=== PATIENT | female | born 1940 | race Caucasian/White ===

== ENCOUNTER → 2023-06-28 | Emergency (ER) | payer MEDICARE, BC ==
[~2023-06-28] VITALS: Ht 170.2 cm; Wt 62.6 kg
[~2023-06-28] MED LIST: DIATR MEGLU/DIATRIZOATE SODIUM 30 ML BOTTLE (GASTROGRAPHIN) ONE
[2023-06-28 23:24] VITALS: BP 139/68; TEMP 97.8; O2SAT 95
== END | disposition home or self-care (01) ==
LOC: ER 21:54
DX: K94.23 Gastrostomy malfunction (principal); I10 Essential (primary) hypertension; F29 Unspecified psychosis not due to a substance or known physiological condition; F39 Unspecified mood [affective] disorder
CPT/HCPCS: 99284; 43762; 74018; Q9963

== ENCOUNTER 2023-07-14 11:15 | Emergency (ER) | payer MEDICARE, BC ==
[~2023-07-14] VITALS: Ht 165.1 cm; Wt 66.7 kg
[2023-07-14] MEDS ORDERED: DIATR MEGLU/DIATRIZOATE SODIUM 30 ML BOTTLE (GASTROGRAPHIN) ONE (11:31)
[2023-07-14] MEDS ORDERED: LORA-258 GT (11:41)
[2023-07-14] MEDS ORDERED: LACT-96 GT (11:41)
[2023-07-14] MEDS ORDERED: FERR220E2 GT (11:41)
[2023-07-14] MEDS ORDERED: MAGN400O6 GT (11:41)
[2023-07-14] MEDS ORDERED: RISP0.5T65 GT (11:41)
[2023-07-14] MEDS ORDERED: PANT40SU2 GT (11:41)
[2023-07-14] MEDS ORDERED: BENZ0.5T43 GT (11:41)
[2023-07-14] MEDS ORDERED: APIX5TAB GT (11:41)
[2023-07-14] MEDS ORDERED: MULT-213 GT (11:41)
[2023-07-14] MEDS ORDERED: VALP250S4 GT (11:41)
[2023-07-14] MEDS ORDERED: ACET-868 GT (11:41)
[2023-07-14] MEDS ORDERED: CRAN250C GT (11:41)
[2023-07-14] MEDS ORDERED: BISA10SU11 RC (11:41)
[2023-07-14] MEDS ORDERED: [UNRECOGNIZED DRUG - CODE] IV (11:41)
[2023-07-14] MEDS ORDERED: LIQUID PROTEIN GT (11:41)
[2023-07-14] MEDS ORDERED: NA P133E RC (11:41)
[2023-07-14 12:44] VITALS: BP 134/89; TEMP 98.2; O2SAT 98
== END 2023-07-14 12:45 | disposition home or self-care (01) ==
LOC: ER 11:18
DX: Z46.59 Encounter for fitting and adjustment of other gastrointestinal appliance and device (principal); I10 Essential (primary) hypertension; I48.91 Unspecified atrial fibrillation; K21.9 Gastro-esophageal reflux disease without esophagitis; M19.90 Unspecified osteoarthritis, unspecified site; F39 Unspecified mood [affective] disorder
CPT/HCPCS: 99283; 74018; Q9963